=== PATIENT | male | born 1955 | race Caucasian/White ===

== ENCOUNTER 2017-07-16 16:46 | Emergency (ER) | payer OTHER ==
--- NOTE | 2017-07-16 19:19 | ED ---
GI/ HPI - HPI Summary HPI Summary: 62M presents with hemorrhoids today. He states he feels pressure there for past week but denies any pain. He denies any constipation. He has been using preparation h. he states he has hemorrhoids 20 years ago that had removed. He denies any abdominal pain, n/v/d. He denies any fever. He denies any bleeding. He denies any excessive straining when uses bathroom. He states it feels like there is a grape there. He is concerned that is is going to start causing pain. - History of Current Complaint Chief Complaint: EDRashSkinAbscess Time Seen by Provider: 07/16/17 18:57 Stated Complaint: HEMORRHOIDS Pain Intensity: 2 - Allergy/Home Medications Allergies/Adverse Reactions: Allergies Allergy/AdvReac Type Severity Reaction Status Date / Time No Known Allergies Allergy Verified 02/05/16 10:57 PMH/Surg Hx/FS Hx/Imm Hx Endocrine/Hematology History: Denies: Hx Anticoagulant Therapy Cardiovascular History: Denies: Hx Myocardial Infarction Infectious Disease History: No Infectious Disease History: Denies: Traveled Outside the [place] in Last 30 Days - Family History Known Family History: Positive: Hypertension - Social History Alcohol Use: Rare Substance Use Type: Reports: None Smoking Status (MU): Never Smoked Tobacco Have You Smoked in the Last Year: No Review of Systems Negative: Fever Negative: Chest Pain Negative: Shortness Of Breath Positive: Other - anal pressure. Negative: Abdominal Pain, Vomiting, Diarrhea, Nausea All Other Systems Reviewed And Are Negative: Yes Physical Exam Triage Information Reviewed: Yes Vital Signs On Initial Exam: Initial Vitals Temp Pulse Resp BP Pulse Ox 97.5 F 65 19 122/72 97 07/16/17 16:59 07/16/17 16:59 07/16/17 16:59 07/16/17 16:59 07/16/17 16:59 Vital Signs Reviewed: Yes Appearance: Positive: Well-Appearing Skin: Positive: Warm, Dry Head/Face: Positive: Normal Head/Face Inspection Eyes: Positive: Normal, Conjunctiva Clear Respiratory/Lung Sounds: Positive: Clear to Auscultation, Breath Sounds Present Cardiovascular: Positive: Normal, RRR Abdomen Description: Positive: Nontender, Soft, Other: - one large hemorrhoid and two small not thrombosed Bowel Sounds: Positive: Present Musculoskeletal: Positive: Normal Neurological: Positive: Normal Psychiatric: Positive: Normal Diagnostics - Vital Signs Vital Signs Temp Pulse Resp BP Pulse Ox 07/16/17 16:59 97.5 F 65 19 122/72 97 - Laboratory Lab Statement: Any lab studies that have been ordered have been reviewed, and results considered in the medical decision making process. GIGU Course/Dx - Course Course Of Treatment: 62M presents with hemorrhoids today. He states he feels pressure there for past week but denies any pain. He denies any constipation. He has been using preparation h. he states he has hemorrhoids 20 years ago that had removed. He denies any abdominal pain, n/v/d. He denies any fever. He denies any bleeding. He denies any excessive straining when uses bathroom. he is concerned that will start to cause pain. on exam has three hemorrhoids present. will have continue preparation h and add dibucaine if develops pain. gave surgery referral. patient understand and agrees with plan. - Diagnoses Differential Diagnoses - Male: Hemorrhoids, Other - anal fissure, pilondial cyst Provider Diagnoses: Hemorrhoid Discharge - Discharge Plan Condition: Good Disposition: HOME Prescriptions: Dibucaine 1% OINT* [Nupercainal 1% OINT*] 1 applic MA QID #1 oint Patient Education Materials: Hemorrhoids (ED) Referrals: Kojo Palomino MD [Primary Care Provider] - Cj Gary MD [Medical Doctor] - Additional Instructions: Apply dibucaine to affected area four times a day Follow up with surgery Return to ED if develop any new or worsening symptoms
[2017-07-16 20:09] VITALS: BP 112/81
== END 2017-07-16 20:09 | disposition home or self-care (01) ==
LOC: ED 16:46
DX: K64.9 Unspecified hemorrhoids (principal)
CPT/HCPCS: 99281